=== PATIENT | male | born 1955 | race Caucasian/White ===

== ENCOUNTER 2020-08-01 17:15 | Inpatient (IN) | payer OTHER ==
[~2020-08-01] VITALS: Ht 182.9 cm; Wt 103.1 kg
--- NOTE | ~2020-08-01 | H ---
[facility] [place] [address] HISTORY AND PHYSICAL Name: ANABELLE SOTO Room #: 219-P ADM IN M.R.#: [id number] Admission: 08/01/20 Attend Phys: Eber Stevens MD Discharge: Date of : 53 Report #: [id number] THIS REPORT FOR: cc: FAM - No family physician/PCP FAM - No family physician/PCP Virgil Michelle MD ~ DATE OF SERVICE: 08/02/2020 INDICATION: Chest pain. HISTORY OF PRESENT ILLNESS: This is a very pleasant 64-year-old young male patient who has not followed up with physicians for 20-25 years. The patient states he has been having exertional substernal discomfort for quite some time, which resolved. He did not seek any medical attention for this. On Monday, though he developed diaphoresis, severe discomfort and it lasted quite some time. Upon further questioning, the discomfort lasted all night long and on the next day, he felt fine unless he was active and moving in which case the discomfort recurred. Then, we found out of the situation and brought him to the Emergency Room being admitted. Denies orthopnea, PND, syncope, near syncope, no palpitations. No orthopnea is noted by the patient. PAST MEDICAL HISTORY: Unknown since he has not seen a physician. He did have pneumonia in the 1980s. ALLERGIES: No known drug allergies. SOCIAL HISTORY: The patient does not follow any particular exercise regimen or dietary restriction. Does consume alcohol socially. REVIEW OF SYSTEMS: Except for symptoms previously mentioned and those commensurate with comorbid state, the 10-point review of system is negative. ELECTROCARDIOGRAM: Normal sinus rhythm, nonspecific ST-T wave changes. LABORATORIES: Are noted with BUN and creatinine of 14 and 1.0. Troponin 7.45 on admission. H and H is 16.1 and 47.0 and platelet count of 66,000. PHYSICAL EXAMINATION: GENERAL: Well-developed male, resting comfortably, in no acute distress. HEENT: Normocephalic, atraumatic. Pupils are equal, round, reactive to light and accommodation. Extraocular muscles are intact. Sclerae and conjunctivae are anicteric. NECK: JVD is normal. Carotid upstrokes are bilaterally symmetrical. No bruits are heard. No thyromegaly. No lymphadenopathy. LUNGS: Clear to auscultation. No wheezes, rhonchi or crackles. No CVA [facility] [address] [place] [address] HISTORY AND PHYSICAL Name: ANABELLE SOTO Room #: 219-P [facility] IN M.R.#: [id number] Admission: 08/01/20 Attend Phys: Eber Stevens MD Discharge: Date of : 53 Report #: [id number] tenderness. CARDIAC: Demonstrates a regular rhythm. Normal first and second heart sounds. No ventricular or atrial gallops, no rubs noted. No murmurs. No lifts or heaves, PMI normal. ABDOMEN: Soft, nontender, nondistended. Normal bowel sounds. EXTREMITIES: Without cyanosis, clubbing or edema. Distal pulses are intact. DTR symmetrical. NEUROLOGIC: Cranial nerves 2-12 are grossly normal and symmetrical. PSYCHIATRIC: Alert, oriented with normal affects. SKIN: Warm and dry. IMPRESSION: 1. Chest pain consistent with non-ST segment elevation myocardial infarction. The patient is currently stable. He is anticoagulated intravenously with unfractionated heparin and doing quite well. I have a concern with the low platelet count and I will discuss this below. The patient will undergo cardiac catheterization in the a.m. We will try and get Hematology to discuss the low platelet count before the procedure. Risks, complications, and alternatives of cardiac catheterization, PCI and conscious sedation discussed with the patient who voiced understanding and wished to proceed. 2. Hypothyroidism with TSH elevated as per primary care. 3. Dyslipidemia with total cholesterol 222, LDL is 168, HDL 27. We will initiate statin therapy. I did discuss lifestyle changes. By: 1044 [id number] Virgil Michelle MD /nt
[2020-08-01 17:16] VITALS: BP 123/87
[2020-08-01 17:42] LABS: ABSOLUTE NEUTROPHILS 4.2 thou/uL (1.4-8.2); MCV 80.6 fL (80.0-100.0); RBC 5.82 mil/uL (4.50-6.00); WBC 5.5 thou/uL (4.0-11.0)
[2020-08-01 17:44] LABS: BASOPHILS 0.3 % (0.0-2.0); EOSINOPHILS 1.9 % (0.0-3.0); HEMOGLOBIN 16.1 gm/dL (14.0-18.0); LYMPHOCYTES 11.7 % (24.0-44.0); MCH 27.6 pg (26.0-34.0); MCHC 34.2 g/dL (28.0-37.0); MONOCYTES 10.2 % (1.0-8.0); POLYS 75.9 % (36.0-66.0); RDW 16.8 % (10.5-14.5)
[2020-08-01 17:51] LABS: CALCIUM 9.6 mg/dL (8.5-10.1); POTASSIUM 3.7 mmol/L (3.5-5.1)
[2020-08-01 18:02] LABS: TROPONIN-I 7.45 ng/mL (<0.06)
[2020-08-01 18:18] LABS: LARGE PLATELETS OCCASIONAL; PLATELET COUNT 66 thou/uL (150-400)
[2020-08-01 18:21] VITALS: BP 123/87
[2020-08-01 18:38] VITALS: BP 199/68
[2020-08-01 19:00] VITALS: BP 139/69
[2020-08-01 19:50] LABS: CHOLESTEROL 222 mg/dL (<200); HDL CHOLESTEROL 27 mg/dL (>40); LDL CHOLESTEROL 168 mg/dL (<100); TC:HDL 8.2 Ratio (Not establshd); TRIGLYCERIDE 138 mg/dL (<150); VLDL 28 mg/dL (<40)
[2020-08-01 20:32] LABS: INR 1.1
--- NOTE | 2020-08-02 01:54 | NUR ---
ADMISSION ASSESSMENT COMPLETED. PT ALERT AND ORIENTED. DENIES ANY CHESTPAIN OR SOA. PT ALSO HAS NO DIZZINESS OR NAUSEA. BP CONTROLLED.REMAINS ON ROOM AIR. FOLLOWING TROPONIN TREND.COVID NEGATIVE.PT ON HEPARIN DRIP. HE HAS URINAL AVAILABLE AND HE IS VOIDING ADEQUATELY. SR ON TELEMETRY.AFEBRILE.CALLS APPROPRAITELY.
[2020-08-02 02:29] LABS: HEMOGLOBIN 14.3 gm/dL (14.0-18.0); MCH 26.5 pg (26.0-34.0); MCHC 33.2 g/dL (28.0-37.0); RBC 5.37 mil/uL (4.50-6.00); RDW 16.3 % (10.5-14.5); WBC 4.8 thou/uL (4.0-11.0)
[2020-08-02 02:54] LABS: CALCIUM 8.7 mg/dL (8.5-10.1); CREATININE 0.9 mg/dL (0.7-1.3); POTASSIUM 4.1 mmol/L (3.5-5.1)
[2020-08-02 02:57] LABS: TROPONIN-I 6.58 ng/mL (<0.06)
[2020-08-02 04:30] VITALS: BP 122/59
[2020-08-02 07:19] VITALS: BP 118/66
[2020-08-02 11:07] VITALS: BP 117/63
[2020-08-02 16:01] VITALS: BP 115/63
--- NOTE | 2020-08-02 18:23 | NUR ---
ASSESSMENT CHARTED - MEDS PER OCT. NO CO'S OF PAIN OR NAUSEA. GAVINO DIET AND FLUIDS. UP TO THE SHOWER THIS AFTERNOON - HEPARIN CONTINUE PER PROTOCOL. BOLUS AND RATE INCREASE THIS AM - AWAITING LAB TO CHECK TO SEE IF PATIENT THERAPEUTIC. PT TO GO TO [employer] [employer] [facility] IN THE AM - NO CO'S AT THE PRESENT TIME.
[2020-08-02 20:13] VITALS: BP 124/58
[2020-08-03] VITALS (12 sets, daily range): BP systolic 104–145; BP diastolic 54–74
--- NOTE | 2020-08-03 07:41 | NUR ---
PATIENT A/O X 4.DENIES PAIN UNTIL THIS AM.PT C/O CHEST PAIN NITROGLYCERIN SL WAS GIVEN.VERBALIZED RELIEF.EKG WAS DONE.ON HEPARIN GTT TITRATED PER PROTOCOL.NPO SINCE MIDNIGHT.MONITOR SHOWS SR.POC CONTINUED.
[2020-08-03 08:11] LABS: % SATURATION 25 % (20-39); IRON 71 ug/dL (65-175); TIBC 289 ug/dL (250-450)
[2020-08-03 08:12] LABS: ALBUMIN 3.9 g/dL (3.4-5.0); DIRECT BILIRUBIN 0.5 mg/dL (<0.1-0.2); TOTAL BILIRUBIN 2.3 mg/dL (0.2-1.0); TOTAL PROTEIN 6.5 g/dL (6.4-8.2)
[2020-08-03 09:24] LABS: FOLIC ACID 19.3 ng/mL (8.6-58.9)
--- NOTE | 2020-08-03 15:26 | 2DMMODE ---
[facility] [address] [place] [address] 2 D/M-MODE ECHOCARDIOGRAM Name: ANABELLE SOTO Room #: 219-P ADM IN M.R.#: [id number] Admission: 08/01/20 Attend Phys: Jesse Singh MD Discharge: Date of : 53 Report #: [id number] THIS REPORT FOR: cc: FAM - No family physician/PCP FAM - No family physician/PCP Virgil Michelle MD ~ APPROVED REPORT Study performed: 08/03/2020 14:12:16 EXAM: Comprehensive 2D, Doppler, and color-flow Echocardiogram Patient Location: Bedside Room #: 219 Status: routine BSA: 2.25 HR: 78 bpm BP: 117/65 mmHg Rhythm: NSR Other Information Study Quality: Good Indications Non STEMI CAD Chest Pain 2D Dimensions IVSd: 9.92 (7-11mm) LVOT Diam: 24.01 (18-24mm) LVDd: 60.70 mm PWd: 10.52 (7-11mm) Ascending Ao: 36.67 (22-36mm) LVDs: 46.97 (25-40mm) Aortic Root: 34.40 mm IVC: 12.00 mm Aortic Valve AoV Peak Bart.: 1.14 m/s AO Peak Gr.: 5.23 mmHg LVOT Max P.21 mmHg LVOT Max V: 1.03 m/s NANCI Vmax: 4.06 cm2 Mitral Valve E/A Ratio: 0.6 MV Decel. Time: 309.53 ms MV E Max Bart.: 0.58 m/s [facility] [address] [place] [address] 2 D/M-MODE ECHOCARDIOGRAM Name: ANABELLE SOTO Room #: 219-P [facility] IN M.R.#: [id number] Admission: 08/01/20 Attend Phys: Jesse Singh MD Discharge: Date of : 53 Report #: [id number] MV A Bart.: 1.05 m/s MV PHT: 89.76 ms IVRT: 156.86 ms Pulmonary Valve PV Peak Bart.: 1.05 m/s PV Peak Gr.: 4.38 mmHg Pulmonary Vein P Vein S: 0.28 m/s P Vein A: 0.38 m/s P Vein D: 0.25 m/s P Vein A Dur.: 124.6 msec P Vein S/D Ratio: 1.12 Left Ventricle Left ventricle is dilated. There is global hypokinesis of the left ventricle. There is normal left ventricular wall thickness. Left ventricular systolic function is mildly decreased. LVEF is 45%. Grade I - abnormal relaxation pattern. Right Ventricle The right ventricle is normal size. The right ventricular systolic function is normal. Atria The left atrium size is normal. The right atrium size is normal. Aortic Valve The aortic valve is normal in structure. No aortic regurgitation is present. There is no aortic valvular stenosis. Mitral Valve The mitral valve is normal in structure. There is no mitral valve regurgitation noted. No evidence of mitral valve stenosis. Tricuspid Valve The tricuspid valve is normal in structure. There is no tricuspid valve regurgitation noted. Pulmonic Valve The pulmonary valve is normal in structure. There is no pulmonic valvular regurgitation. Great Vessels The aortic root is normal in size. IVC is normal in size and collapses >50% with inspiration. [facility] [place] [address] [place] [address] 2 D/M-MODE ECHOCARDIOGRAM Name: ANABELLE SOTO Room #: 219-P ADM IN M.R.#: [id number] Admission: 08/01/20 Attend Phys: Jesse Singh MD Discharge: Date of : 53 Report #: [id number] Pericardium There is no pericardial effusion. <Conclusion> Left ventricle is dilated. There is global hypokinesis of the left ventricle. LVEF is 45%. The aortic valve is normal in structure. The mitral valve is normal in structure. The tricuspid valve is normal in structure. The pulmonary valve is normal in structure. There is no pericardial effusion. <ELECTRONICALLY SIGNED> By: Virgil Michelle MD 08/03/20 1526 1526 1526 Virgil Michelle MD /INF
[2020-08-03 16:01] LABS: HEMOGLOBIN 15.2 gm/dL (14.0-18.0); PLATELET COUNT 65 thou/uL (150-400); RDW 16.7 % (10.5-14.5); WBC 3.6 thou/uL (4.0-11.0)
[2020-08-03 16:03] LABS: HEMATOCRIT 45.4 % (42.0-52.0); MCH 27.1 pg (26.0-34.0); MCHC 33.5 g/dL (28.0-37.0); MCV 80.9 fL (80.0-100.0); RBC 5.61 mil/uL (4.50-6.00)
[2020-08-03 16:58] LABS: ALBUMIN 3.7 g/dL (3.4-5.0); CALCIUM 8.5 mg/dL (8.5-10.1); CREATININE 1.2 mg/dL (0.7-1.3); POTASSIUM 4.2 mmol/L (3.5-5.1); TOTAL BILIRUBIN 2.3 mg/dL (0.2-1.0); TOTAL PROTEIN 6.6 g/dL (6.4-8.2)
[2020-08-03 17:37] LABS: ABSOLUTE NEUTROPHILS 3.1 thou/uL (1.4-8.2); ANISOCYTOSIS 1+
[2020-08-03 17:38] LABS: TARGET CELLS FEW
[2020-08-03 18:02] LABS: URINE BILIRUBIN NEGATIVE (Negative); URINE BLOOD 3+ (Negative); URINE CLARITY SL CLOUDY; URINE COLOR YELLOW; URINE GLUCOSE-RANDOM* NEGATIVE (Negative); URINE KETONES NEGATIVE (Negative); URINE LEUKOCYTES-REFLEX TRACE (Negative); URINE PROTEIN (DIPSTICK) TRACE (Negative); URINE SPECIFIC GRAVITY 1.015 (1.005-1.035)
[2020-08-03 18:05] LABS: URINE NITRITE-REFLEX POSITIVE (Negative)
[2020-08-03 18:09] LABS: BACTERIA-REFLEX 1-9 Few /HPF (None Seen); CASTS None Seen /LPF (None Seen); CRYSTALS None Seen /LPF (None Seen); SQUAMOUS None Seen /LPF (0-3); URINE RBC >20 Many /HPF (0-2); URINE WBC-REFLEX 0-5 Rare /HPF (0-5)
--- NOTE | 2020-08-03 20:45 | NUR ---
RECEIVED PT'S CARE AROUND 0735; PT. ON BED; ALERT; C/O CP; 09/30; SR ON THE MONITOR; HEPARING GTT RUNNING AT 18.63 UNITS/KG/H; DURING AM ASSESSMENT PT. C/O CHEST PAIN INCREASING AND DECREASING FROM TIME TO TIME; PRN NITROGLYCERIN GIVEN; ST. DECREASE PAIN; AM MEDICATION GIVEN; RECEIVED CALL FROM CARDIAC CATH; DISCONNECT FROM FLUIDS AND HEPARIN GTT; PT. NOTIFIED ABOUT GOING FOR PROCEDURE; BACK FROM PROCEDURE AT 1200; R. GROIN SIDE C/D/I; NO HEMATOMA; EDUCATED ABOUT BED REST; HOLDING PRESSURE WHEN COUGHING; ST. UNDERSTANDING; LUNCH GIVEN; AROUND 1400 PT. BLEEDING FROM URETHRA AFTER VOIDING; BLOOD CLEANED OVER PERINEAL AREA AND HANDS; PHYSICIAN NOTIFIED; NO NEW ORDERS; MONITORING; BLOOD DRIPPING FROM URETHRA; URINE NOT CLEARING; PHYSICIAN NOTIFIED; ORDERS RECEIVED; ST. MIGHT NEED TO HAVE A BM; OFFERED BED NIEVES; REFUSED IT; LABS ON THE SYSTEM PHYSICIAN NOTIFIED; PAGED; NO ANSWER BACK; CLOSE TO 1500; PT. C/O NAUSEA; VOMITING; VS WNL; SHAKING; LIPS TURNING BLUE; RAPID RESPONSE CALLED; VS WNL; HBG WNL; EKG ST; PRN ZOFRAN GIVEN; AFTER RAPID RESPONSE DR. MALHOTRA ROUNDING ON PT.; DR. DE JESUS ROUNDING ON PT; AUTOMOBILE SERVICE STATION MECHANIC UPDATED THEM ABOUT PT'S HEALTH STATUS; ORDERS ON PLACED; URINE SAMPLE SENT; SUGGESTED US BLADDER TO DR. ALLEN; ORDERS RECEIVED; REASSESSMENT PT. ST. FEELING BETTER; ST. FEELING SOME WEAKNESS; REFUSED DINNER; VOID FREQUENT SMALL AMMOUNTS; DR. ALLEN NOTIFIED; ORDERS RECEIVED; PT. EDUCATED ABOUT CALLING IMMEDIATELY IF VOMITING AND SHAKINESS RETURNED; ST. UNDERSTANDING; NOTICED ELEVATED TOTAL BILIRUBIN AND AST; PHYSICIAN NOTIFIED; NO NEW ORDERS; ASSESSMENT CHARGED; FOLLOWING POC; PASSED ON REPORT;
[2020-08-04 05:04] LABS: MCH 27.4 pg (26.0-34.0); MCHC 34.3 g/dL (28.0-37.0); MCV 79.8 fL (80.0-100.0); RBC 4.76 mil/uL (4.50-6.00); RDW 16.7 % (10.5-14.5); WBC 8.9 thou/uL (4.0-11.0)
[2020-08-04 05:45] VITALS: BP 111/50
--- NOTE | 2020-08-04 06:00 | NUR ---
Assumed pt care at 1900. Pt is alert and oriented with no sign of distress noted in pt. Pt is drowsy. Assessment completed and documented. Fall precaution in place. Scheduled meds administered to pt. No acute events overnight. Pt is stable through the night. No further needs at this time.
--- NOTE | 2020-08-04 07:03 | HC ---
[facility] [address] [address] CONSULTATION Name: ANABELLE SOOT Room #: 219-P ADM IN M.R.#: [id number] Admission: 08/01/20 Attend Phys: Jesse Singh MD Discharge: Date of : 53 Report #: [id number] THIS REPORT FOR: cc: FAM - No family physician/PCP FAM - No family physician/PCP Jose G Martinez MD ~ DATE OF SERVICE: 08/03/2020 REASON FOR CONSULTATION: Thrombocytopenia. HISTORY OF PRESENT ILLNESS: The patient is a pleasant 64-year-old gentleman who probably has not seen a doctor over 2 decades, who on admission was for evaluation of chest pain and possible non-ST elevated NM, was found to have platelets of 66,000. On repeat yesterday, they were 64,000, none drawn today. Coags on admission include an INR of 1.1 and APTT of 30.1. White count 4.8, hemoglobin 14.3, MCV 80.0, RDW 16.3. Differential appears to be fairly unremarkable, without an increase in lymphocytes, maybe a slight increase in neutrophils, no acute forms. Liver function is not available. BUN of 14, creatinine of 0.9. TSH slightly elevated at 4.291. REVIEW OF SYSTEMS: The patient denies headache, fevers, chills, weight change, awareness of lymphadenopathy, any skin lesions, any blood in urine or stool, any unusual ecchymosis. MEDICATIONS: Prior to admission essentially none. Medications at this time include IV fluids, Pepcid 20 b.i.d., morphine p.r.n., Tylenol p.r.n., Zofran p.r.n., nitroglycerin p.r.n., heparin, atorvastatin 20 mg 1 time, metoprolol 12.5 mg 1 time. PHYSICAL EXAMINATION: VITAL SIGNS: The patient's height is 6 feet, which is 182.9 cm. Weight is 227.3 pounds or 103.1 kilograms. Blood pressure 109/54, O2 sat 97%, respirations 18, pulse 75, afebrile and oral temperature of 98.3. MOOD: The patient is pleasant, conversant. NEUROLOGIC: Speech and thought pattern normal. Moving all extremities well. LUNGS: Clear, without stridor, wheezes or rhonchi. Symmetric, unlabored. CARDIOVASCULAR: Regular rate. ABDOMEN: Slightly obese. No hepatosplenomegaly. Question of fluid on exam. EXTREMITIES: Without clubbing, cyanosis or edema. SKIN: Without unusual bruises except from lab draw. IMAGING: Includes a chest x-ray without comparison with no acute cardiopulmonary disease. FAMILY HISTORY: Father sounds like he may have chronic leukemia, unclear [address] [address] CONSULTATION Name: ANABELLE SOTO Room #: 219-P [facility] IN M.R.#: [id number] Admission: 08/01/20 Attend Phys: Jesse Singh MD Discharge: Date of : 53 Report #: [id number] whether it is myelogenous or lymphocytic. Mother also had heart disease. No one else with blood disorders. 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 ASSESSMENT AND PLAN: 1. Thrombocytopenia, unclear duration, unclear etiology. We will check B12, folate, iron, peripheral smear, immature platelet fraction. Also, ultrasound of the abdomen and liver function test. If ____this is from chronic ITP, then we should be able to treat him as needed for his heart disease. If he is felt to have underlying liver disease, then we have to be more cautious about medications and bleeding. We will await additional studies as ordered. 2. Non-ST elevation myocardial infarction. No plans and agree with plans for cardiac catheterization. 3. Hypothyroid. Agree with plans for replacement. We will follow with you. <ELECTRONICALLY SIGNED> By: Jose G Martinez MD 08/04/20 0703 0753 0826 Jose G Martinez MD /nt
[2020-08-04 10:10] VITALS: BP 109/51
--- NOTE | 2020-08-04 10:37 | NUR ---
Met with patient who admits with CP. Patient independent with adls. He is employed. He drives. He has no PCP. He has medicare A,B but NO prescrition coverage. Gave patient information for phys at [facility]. Patient resides alone in independent home. Debbie following for dc planning.
[2020-08-04 12:07] LABS: HEMATOLOGY COMMENTS Note: (()); HEMOGLOBIN 14.4 g/dL (13.0-17.7)
--- NOTE | 2020-08-04 14:11 | NUR ---
RECIEVED REPORT FROM ANABELL GÓMEZ.
[2020-08-04 16:45] VITALS: BP 114/54
--- NOTE | 2020-08-04 18:42 | NUR ---
PAGED DR ALLEN DEVERAL TIMES TO OBTAIN DIFFERENT MEDICATION TO TREAT NAUSEA HOWEVER NO RETURN CALL. WILL PASS ONTO NIGHT RN.
[2020-08-04 23:06] LABS: IgG 1075 mg/dL (603-1613)
--- NOTE | 2020-08-05 03:11 | NUR ---
At about 02:10, pt started complaining of chest pain. Vital sign was obtain, nitroglycerin x2 was administered. Pt verbalized chest pain relief after nitro administration. Soon later, patient started having shortness of breath, with respitaions of 25, oxygen level at 90% on 3L of O2. Oxygen level was increased from 3L-6L and when pt was assessed, it was noted that patient was sounded with crackles and wheezing. ARCH CUSHION SKIVING MACHINE OPERATOR practitioner notified and orders received. Continued to monitor patient through the night.
[2020-08-05 03:44] VITALS: BP 121/62
[2020-08-05 08:05] VITALS: BP 137/61
[2020-08-05 11:55] LABS: HEMATOCRIT 37.7 % (42.0-52.0); HEMOGLOBIN 12.9 gm/dL (14.0-18.0); MCH 27.1 pg (26.0-34.0); MCHC 34.1 g/dL (28.0-37.0); MCV 79.5 fL (80.0-100.0); RBC 4.75 mil/uL (4.50-6.00); RDW 16.5 % (10.5-14.5); WBC 6.4 thou/uL (4.0-11.0)
[2020-08-05 11:59] VITALS: BP 119/58
--- NOTE | 2020-08-05 12:07 | HC ---
[facility] [address] [address] CONSULTATION Name: ANABELLE SOTO Room #: 219-P ADM IN M.R.#: [id number] Admission: 08/01/20 Attend Phys: Jesse Singh MD Discharge: Date of : 53 Report #: [id number] THIS REPORT FOR: cc: FAM - No family physician/PCP FAM - No family physician/PCP Rishabh Tomlin MD ~ DATE OF SERVICE: 08/04/2020 INFECTIOUS DISEASE CONSULTATION ATTENDING PHYSICIAN: Dr. Singh. REASON FOR EVALUATION: Rigors, possible early sepsis. HISTORY OF PRESENT ILLNESS: Chart reviewed, patient examined. This is a 64-year-old gentleman, apparently without significant medical history, who is fairly active in his appointment, who experienced some chest pain and discomfort, described as a midsternal, did have some associated dyspnea, nausea as well as being diaphoretic. He was evaluated and felt to have a non-ST elevation myocardial infarction. Additional evaluation included thrombocytopenia, undergoing that evaluation as well. He had experienced episode with what sounds like acute rigors. This went on for quite some time, associated with nausea and emesis. He had a second episode today, perhaps attributable to contrast dye. Generally, he denies significant pulmonary-related complaints. On questioning, he denies any particular exposure history, he lives alone. He is empirically started on piperacillin/tazobactam. He has now had a result with 1 out of 2 blood cultures with growth of gram-positive cocci. He is not encephalopathic. ALLERGIES: None known. CURRENT MEDICATIONS: Include pantoprazole, lisinopril, isosorbide mononitrate, atorvastatin, aspirin, Zosyn, metoprolol, famotidine. PAST MEDICAL HISTORY: Otherwise unremarkable. SOCIAL HISTORY: Nonsmoker, no ethanol, no illicit drug use. FAMILY HISTORY: Noncontributory. REVIEW OF SYSTEMS: Otherwise unremarkable. PHYSICAL EXAMINATION: GENERAL: He appears reasonably well nourished, he is alert. VITAL SIGNS: Temperature is 99.9 this morning, pulse 97, respirations 18, blood [facility] [address] [place] [address] CONSULTATION Name: ANABELLE SOTO Room #: 219-P [facility] IN M.R.#: [id number] Admission: 08/01/20 Attend Phys: Jesse Singh MD Discharge: Date of : 53 Report #: [id number] pressure 109/51. SKIN: Warm, dry, no rashes. HEENT: Normocephalic. Extraocular muscles intact. NECK: Supple. LUNGS: Diminished, otherwise clear breath sounds. HEART: Regular. I do not appreciate a murmur. Borderline tachycardic. ABDOMEN: Soft, mildly distended, nontender. EXTREMITIES: No cyanosis. GENITOURINARY AND RECTAL: Deferred. LABORATORY DATA: Sed rate of 10. Blood cultures 1 out of 2 with Gram-positive cocci. Did have a surveillance isolated methicillin-susceptible Staph aureus. Most recent CBC: White count of 8.9, H and H 13.0 and 38.0, platelets of 56 which has been consistent. Abdominal ultrasound showed marked splenomegaly, no ascites. Urinalysis, 0-5 white cells. Lactic acid 1.5. Electrolytes: Sodium 143, potassium 4.2, chloride 106, bicarbonate is 26, anion gap of 11, BUN and creatinine 16 and 1.2, glucose of 109. AST of 47, total bilirubin of 2.3, ALT of 44. Albumin 3.7, total protein 6.6. Estimated GFR of 61. Echo was otherwise unremarkable. EF slightly decreased at 45%. There are no valvular abnormalities. Coronavirus testing was negative. ASSESSMENT: 1. Positive blood culture with a suggestion of staphylococcal species with what sounds like true rigors. 2. Non-ST elevation myocardial infarction. 3. Thrombocytopenia with marked splenomegaly. Oncology evaluating. PLAN: We will continue empiric therapy. Screening showed MSSA. I am not certain whether this blood culture represents a true positive at this point, I think it is reasonable to continue empiric therapy. At this point, I do not see focus of pyogenic infection, certainly may well be immunocompromised given splenomegaly. We will add incentive spirometry. Increase activity as allowed. Monitor expectantly. <ELECTRONICALLY SIGNED> By: Rishabh Tomlin MD 08/05/20 1207 1200 [id number] Rishabh Tomlin MD /nt
[2020-08-05 13:15] LABS: CALCIUM 8.5 mg/dL (8.5-10.1); POTASSIUM 3.4 mmol/L (3.5-5.1)
[2020-08-05 14:07] LABS: ANA INTERPRETATION Negative (Negative)
[2020-08-05 15:07] LABS: CERULOPLASMIN 24.7 mg/dL (16.0-31.0)
[2020-08-05 15:21] VITALS: BP 106/57
[2020-08-05 19:48] VITALS: BP 96/56
[2020-08-06 04:07] VITALS: BP 103/54
[2020-08-06 04:48] LABS: ALBUMIN 2.7 g/dL (3.4-5.0); CALCIUM 7.8 mg/dL (8.5-10.1); CREATININE 0.9 mg/dL (0.7-1.3); POTASSIUM 3.5 mmol/L (3.5-5.1); TOTAL BILIRUBIN 2.2 mg/dL (0.2-1.0); TOTAL PROTEIN 5.3 g/dL (6.4-8.2)
[2020-08-06 07:39] LABS: HEMATOCRIT 35.7 % (42.0-52.0); HEMOGLOBIN 11.9 gm/dL (14.0-18.0); MCH 26.7 pg (26.0-34.0); MCHC 33.3 g/dL (28.0-37.0); MCV 80.4 fL (80.0-100.0); RBC 4.44 mil/uL (4.50-6.00); RDW 16.7 % (10.5-14.5); WBC 5.2 thou/uL (4.0-11.0)
[2020-08-06 07:58] VITALS: BP 104/60
--- NOTE | 2020-08-06 09:46 | NUR ---
PT RESTING IN ROOM WITH OUT ANY C/O PAIN, VOIDING PER URINAL, VSS, SR PER MONITOR, PT STATED HE WAS FEELING BETTER THIS AM, REPORT GIVEN TO NEXT SHIFT TO CON'T WITH PPOC.
[2020-08-06 11:44] VITALS: BP 95/52
[2020-08-06 15:44] VITALS: BP 101/58
--- NOTE | 2020-08-06 16:25 | NUR ---
Case discussed with the care team. PT/OT/5N kenneth pending. Pt with + bld cultures and being treated for nstemi. Will likely need open heart surgery per CTS. Will ask rehab medicine for imput as pt is weak and may benefit from rehab stay prior to having heart surgery. Should the pt be able to dc home and return for CABG, HH could be ordered but cardiology or the attending would need to follow as he does not have a pcp.
[2020-08-06 17:07] LABS: HAV IgM AB (ANTI-HAV IgM) Negative (Negative); HEPATITIS C VIRUS AB <0.1 (0.0-0.9)
[2020-08-06 19:41] VITALS: BP 104/53
[2020-08-07] VITALS (8 sets, daily range): BP systolic 99–134; BP diastolic 49–87
[2020-08-07 04:07] LABS: HEMATOCRIT 33.5 % (42.0-52.0); HEMOGLOBIN 11.1 gm/dL (14.0-18.0); MCH 26.9 pg (26.0-34.0); MCHC 33.2 g/dL (28.0-37.0); MCV 80.9 fL (80.0-100.0); RBC 4.14 mil/uL (4.50-6.00); RDW 16.6 % (10.5-14.5); WBC 3.4 thou/uL (4.0-11.0)
[2020-08-07 04:33] LABS: ALBUMIN 2.6 g/dL (3.4-5.0); CALCIUM 8.1 mg/dL (8.5-10.1); TOTAL PROTEIN 5.6 g/dL (6.4-8.2)
--- NOTE | 2020-08-07 04:42 | NUR ---
Assumed pt care at 1900. Pt is alert and oriented. No sign of distress noted in pt. Pt is stable. Fall precaution in place. Assessment completed and documented. Scheduled meds administered to pt. No acute events overnight. Continue to monitor pt. No further needs at this time.
--- NOTE | 2020-08-07 11:23 | NUR ---
Case discussed with the care team. Pt did well with therapy this am. Print Washer visited with him at bedside. He is A&ox4 and indicates that he prefers to go home with home infusion and then return for his CABG in a few weeks. He only has Medicare A/B, no part D or supplement. He is also needing to find a pcp is going to call [facility]. Options for SNF or HH discussed. Outpt is not an option as it is [place] q4hrs and he is too high level for 5N. He feels safter returning home vs going to snf due to the virus. Dc landscape architect and planner to fax referrals to [facility] to get est cost for drug and supplies for home infusion.
[2020-08-07] MEDS ORDERED: ASPIRIN325 PO ×2 (14:17)
[2020-08-07] MEDS ORDERED: CLOPIDOGREL75 MG PO ×2 (14:17)
[2020-08-07] MEDS ORDERED: LISINOPRIL2.5 MG PO ×2 (14:17)
[2020-08-07] MEDS ORDERED: COREG6.25 MG PO ×2 (14:17)
[2020-08-07] MEDS ORDERED: LIPITOR40 MG PO ×2 (14:17)
[2020-08-07] MEDS ORDERED: IMDUR 30 MG TAB30 M1 PO ×2 (14:17)
--- NOTE | 2020-08-07 15:18 | NUR ---
VAT CONSULTED FOR PICC PLACEMENT. 4FR SL PICC LINE PLACED TO LEFT UPPER BASILIC VEIN, PER DOCUMENTAION AND HOSPITAL POLICY. TRIMMED 54CM WITH 0CM EXTERNAL. CXR ORDERED TO CONFIRM TIP LOCATION. PT TOLERATED WELL.
--- NOTE | 2020-08-07 16:33 | NUR ---
RECEIVED PT'S CARE AROUND 717; PT. ON BED; ALERT; DURING AM ASSESSMENT AOX4; NO C/O PAIN; C/O SOME NUMBNESS OVER RLE; PHYSICIAN AWARE; AM MEDICATION GIVEN; EDUCATED ABOUT FALL PRECAUTIONS; ST. UNDERSTANDING; PER DR. YA PT. NEEDS PICC LINE FOR IV ANTIBIOTICS; INKER NOTIFIED; PER DR. YA OK FOR PT. TO COME TO GET IV ANTIBIOTIC DAILY OUTPATIENT; ARRAGEMENTS MADE BY INKER; DR. ALLEN NOTIFIED; D/C ORDERS ON PLACED; PT. NOTIFIED; PT AND OT WORKER WITH PT; SR ON THE MONITOR; ASSESSMENT CHARGED; FOLLOWING POC; WAITING ON IV TEAM OK TO USE PICC LINE TO GIVE IV ANTIBIOTIC AND D/C PT.; WILL WORK ON D/C PAPERS;
--- NOTE | 2020-08-08 12:44 | HC ---
[facility] [place] [address] CONSULTATION Name: ANABELLE SOTO Room #: 219-P [facility] IN M.R.#: [id number] Admission: 08/01/20 Attend Phys: Jesse Singh MD Discharge: 08/07/20 Date of : 53 Report #: [id number] THIS REPORT FOR: cc: ARLENE - No family physician/PCP FAM - No family physician/PCP Misael Gonzales MD ~ DATE OF SERVICE: 08/03/2020 We were asked to see the patient by Dr. Michelle. HISTORY OF PRESENT ILLNESS: The patient is a 64-year-old with coronary artery disease. The patient was admitted on 08/01/2020 with chest pain. 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 Symptoms improved with rest pain. The patient went home early from work, but then overnight the patient was unable to sleep due to intermittent chest pain and the patient's family brought him to the Emergency Department. In the Emergency Department, he was found to have an elevated troponin of 7.4. Chest x-ray was negative for acute abnormalities. The patient was started on heparin drip and admitted to the hospital. Cardiac catheterization was done yesterday. This showed severe 3-vessel coronary artery disease and what looks like a chronically occluded left anterior descending, circumflex with a high-grade marginal stenosis and a high-grade complex right coronary lesion that appeared to be the culprit. Because the patient was having chest pain and diaphoresis on the table an acute intervention was done. A stent was placed in the distal right coronary artery and a lesion in the proximal right was simply ballooned. The patient was given a loading dose of Plavix and sent to the floor. On the floor, the patient developed episode of chills and rigor with the temperature of at least 99 degrees and I understand subsequently the blood cultures are positive for staph. Other medical problems: None. No specific problems reported. The patient has not seen doctors in years. MEDICATIONS AT HOME: No home medication. ALLERGIES: No drug allergies. SOCIAL HISTORY: The patient is a never smoker, who does use alcohol. [facility] [address] [place] [address] CONSULTATION Name: ANABELLE SOTO Room #: 219-P [facility] IN M.R.#: [id number] Admission: 08/01/20 Attend Phys: Jesse Singh MD Discharge: 08/07/20 Date of : 53 Report #: [id number] REVIEW OF SYSTEMS: Not done as the patient was in the throes of his chills and rigors. We note since hospitalization, the patient has been diagnosed as having thrombocytopenia with an unknown cause. PHYSICAL EXAMINATION: VITAL SIGNS: When I saw the patient, temperature was 99 degrees, blood pressure 130/57, heart rate was 104 when I saw the patient, on 3 liters oxygen the pulse ox was 95. HEENT: No scleral icterus, no arcus. NECK: No mass. I hear no bruit. CHEST: Clear to auscultation, but breath sounds are diminished due to poor effort. HEART: The patient has tachycardia. No murmurs audible. Heart tones are somewhat distant. ABDOMEN: Soft. EXTREMITIES: Warm. No clubbing, cyanosis or edema, 2+ popliteal pulses bilaterally. As mentioned, the patient is having chills and rigor. NEUROLOGIC: No obvious motor or sensory dysfunction. MUSCULOSKELETAL: No obvious muscle or bone asymmetry or deformity. SKIN: No rash or infection. PSYCHIATRIC: The patient is not communicative, although he does answer questions grudgingly and appears to be oriented. ASSESSMENT: The patient has important coronary artery disease, but also other medical problems including thrombocytopenia and what appears to be possible bacteremia. The patient also has gross hematuria after the loading dose of Plavix was started. I reviewed the case with Dr. Michelle. Fortunately, the culprit lesion appears to be addressed. However, the patient does have chronic coronary lesions that will require surgery. Other medical issues need to be addressed and ameliorated first and then I will discuss risks and details, options and alternatives with the patient for treatment of this important coronary artery disease. Thank you for the consult. <ELECTRONICALLY SIGNED> By: Misael Gonzales MD 08/08/20 1244 1514 Misael Gonzales MD /nt
--- NOTE | 2020-08-10 07:54 | EKG ---
[address] [place] [employer] [place] [address] ELECTROCARDIOGRAM REPORT Name: ANABELLE SOTO Room #: 219-[facility] IN M.R.#: [id number] Admission: 08/01/20 Attend Phys: Jesse Singh MD Discharge: 08/07/20 Date of : 53 Report #: [id number] [facility] Test Date: 2020-08-03 Test Time: 03:39:35 Pat Name: ANABELLE SOTO Department: Room: 219 P Gender: M Maintenance Man: JESSICA : 1955 Requested By: Virgil Michelle Order Number: [id number] MD: All Waller Measurements Intervals [place] Rate: 79 P: 22 ID: 183 QRS: -53 QRSD: 107 T: 6 QT: 370 QTc: 425 Interpretive Statements Sinus rhythm Left anterior hemiblock Anterior infarct, age indeterminate Compared to ECG 08/01/2020 17:21:15 No significant changes Electronically Signed On 08-03-2020 7:23:55 [place] MACHINE OPERATOR by All Waller [email or web address] <ELECTRONICALLY SIGNED> By: All Waller MD, [facility] 08/03/20 0723 0339 [id number] All Waller MD, [facility] /EPI
--- NOTE | 2020-08-10 07:54 | EKG ---
[address] [address] ELECTROCARDIOGRAM REPORT Name: ANABELLE SOTO Room #: 219-P [facility] IN M.R.#: [id number] Admission: 08/01/20 Attend Phys: Jesse Singh MD Discharge: 08/07/20 Date of : 53 Report #: [id number] [facility] Test Date: 2020-08-03 Test Time: 09:02:18 Pat Name: ANABELLE SOTO Department: Room: 219 P Gender: M Community Affairs Manager: CHEL : 1955 Requested By: Marla Villafana Order Number: [id number] MD: Duran Ashton Measurements Intervals [place] Rate: 78 P: 19 [place]: 181 QRS: -49 QRSD: 107 T: 16 QT: 375 QTc: 428 Interpretive Statements Sinus rhythm Inferior infarct, old Anteroseptal infarct, age indeterminate Compared to ECG 08/03/2020 03:39:35 Left anterior fascicular block no longer present Myocardial infarct finding still present Electronically Signed On 08-03-2020 13:02:38 PENS AND PENCILS REPAIRER by Duran Ashton [email or web address] <ELECTRONICALLY SIGNED> By: Duran Ashton MD, FACC 08/03/20 1302 0902 0902 Duran Ashton MD, [facility] /EPI
--- NOTE | 2020-08-10 07:54 | EKG ---
[address] [address] ELECTROCARDIOGRAM REPORT Name: ANABELLE SOTO Room #: 219-P [facility] IN M.R.#: [id number] Admission: 08/01/20 Attend Phys: Jesse Singh MD Discharge: 08/07/20 Date of : 53 Report #: [id number] [facility] ED Test Date: 2020-08-01 Test Time: 17:21:15 Pat Name: ANABELLE SOTO Department: Room: 219 Gender: M Network Controller: cirilo : 1955 Requested By: Sheldon Rondon Order Number: [id number] MD: Duran Ashton Measurements Intervals [place] Rate: 90 P: 10 DC: 171 QRS: -69 QRSD: 100 T: 33 QT: 354 QTc: 433 Interpretive Statements Sinus rhythm Probable left atrial enlargement Anteroseptal infarct, age indeterminate No previous ECG available for comparison Electronically Signed On 08-03-2020 7:21:05 INSIDE SALES ACCOUNT MANAGER by Duran Ashton [email or web address] <ELECTRONICALLY SIGNED> By: Duran Ashton MD, [facility] 08/03/20 0721 172 20 Duran Ashton MD, FAC /EPI
--- NOTE | 2020-08-10 07:55 | EKG ---
[address] [address] ELECTROCARDIOGRAM REPORT Name: ANABELLE SOTO Room #: 219-P [facility] IN M.R.#: [id number] Admission: 08/01/20 Attend Phys: Jesse Singh MD Discharge: 08/07/20 Date of : 53 Report #: [id number] [facility] Test Date: 2020-08-03 Test Time: 16:36:49 Pat Name: ANABELLE SOTO Department: Room: 219 P Gender: M Coater: Shivani VELASQUEZ : 1955 Requested By: Jesse Singh Order Number: [id number] MD: Duran Ashton Measurements Intervals [place] Rate: 106 P: [place]: QRS: -51 QRSD: 103 T: 60 QT: 330 QTc: 439 Interpretive Statements SINUS TACHYCARDIA Inferior infarct, old Probable anteroseptal infarct, old Artifact in lead(s) I,II,aVR,V1,V2,V3,V4,V5,V6 Compared to ECG 08/03/2020 09:02:18 Sinus rhythm no longer present Myocardial infarct finding still present Electronically Signed On 08-04-2020 7:22:09 CRITICAL CARE UNIT NURSE by Duran Ashton [email or web address] <ELECTRONICALLY SIGNED> By: Duran Ashton MD, FACC 08/04/20 0722 1636 1636 Duran Ashton MD, FACC /EPI
--- NOTE | 2020-08-12 10:42 | HC ---
[facility] [place] [address] CONSULTATION Name: ANABELLE SOTO Room #: 219-P [facility] IN M.R.#: [id number] Admission: 08/01/20 Attend Phys: Jesse Singh MD Discharge: 08/07/20 Date of : 53 Report #: [id number] THIS REPORT FOR: cc: ARLENE - No family physician/PCP FAM - No family physician/PCP Rogelio Root MD ~ DATE OF SERVICE: 08/06/2020 HISTORY OF PRESENT ILLNESS: The patient is a 64-year-old white male who was admitted with chest pain, noted to have elevated troponin, decreased platelets. Marked splenomegaly. Hematology has been involved. He also has a non-ST elevation DC. Cardiology is involved and he underwent stenting. Cardiac catheterization showed 3-vessel coronary artery disease. There is consideration for cardiac bypass at a later date as he further medically stabilizes. His course has been complicated by Staphylococcus bacteremia with possible early sepsis, positive blood cultures. He also has had acute hypoxic respiratory failure. GI is following with elevated liver function tests and there is a question for possible EGD or colonoscopy at a later date. Hematology is involved with the thrombocytopenia and splenomegaly and he underwent a bone marrow biopsy yesterday with results pending. He has had some problems with confusion, disorientation/multifactorial encephalopathy that appear to be improving. We are seeing him in rehabilitation medicine consultation. PAST MEDICAL HISTORY: Relatively benign. He has had a history of pneumonia in the past. There is also a note of GERD. MEDICATIONS: Please see the full medication listing. ALLERGIES: No known drug allergies. SOCIAL HISTORY: Lives in a house alone. No assistive device, community ambulator, works as a shampoo person, active buffing floors, etc. He does have an Ex- in the area and 2 sons in the area and a daughter in [place]. REVIEW OF SYSTEMS: No current complaints of chest pain, shortness of breath or abdominal discomfort. He was not on any oxygen premorbidly. PHYSICAL EXAMINATION: GENERAL: A 64-year-old pleasant white male, in no obvious distress. VITAL SIGNS: Last recorded temperature 98.6, pulse 73, respirations 17, blood pressure 95/52. The patient is alert, pleasant. HEENT: Appeared to be benign. He is currently on nasal prong O2, 3 liters. NEUROLOGIC: Facies are symmetric. He has functional range of motion of the upper extremities. Strength is grade 4-/5. DTRs are trace to 1. Lower extremities, no focal calf swelling, functional range of motion with strength [address] [address] CONSULTATION Name: ANABELLE SOTO Room #: 219-P [facility] IN ..#: [id number] Admission: 08/01/20 Attend Phys: Jesse Singh MD Discharge: 08/07/20 Date of : 53 Report #: [id number] grade 4-/5. DTRs are trace to 1. He follows basic commands without difficulty, although there may be some latency to his responses. ASSESSMENT: A 64-year-old white male with the following problem list: 1. Medical complexity with generalized debilitation. 2. Coronary artery disease, status post catheterization with stenting of the LAD. 3. Acute hypoxic respiratory failure. 4. A three-vessel severe coronary artery disease with consideration for Cardiothoracic bypass surgery at a later date. 5. Thrombocytopenia with massive splenomegaly, status post bone marrow biopsy. Hematology/Oncology involved. 6. Elevated liver function tests. GI is assisting. Recommendations are for EGD/colonoscopy at some point. 7. Staphylococcus bacteremia. 8. Non-ST elevation myocardial infarction. PLAN: Discussion with the patient's nurse. We will go ahead and add physical therapy and occupational therapy orders. We will see how he does with his overall functional abilities. We will be glad to follow along with you regarding his rehab therapy needs. <ELECTRONICALLY SIGNED> By: Rogelio Root MD 08/12/20 1042 1200 1530 Rogelio Root MD /[facility]
[2020-08-18] MEDS ORDERED: NITROSTAT0.4 M1 SUBLING (10:09)
[2020-08-20] MEDS ORDERED: ROSUVASTATIN CA20 MG (10:33)
[2020-08-20] MEDS ORDERED: MUPIROCIN1 GM (10:36)
--- NOTE | 2020-08-24 14:34 | CATHLAB ---
[facility] [address] [address] INVASIVE PROCEDURE REPORT Name: ANABELLE SOTO Room #: 219-P DIS IN M.R.#: [id number] Admission: 08/01/20 Attend Phys: Jesse Singh MD Discharge: 08/07/20 Date of : 53 Report #: [id number] THIS REPORT FOR: cc: FAM - No family physician/PCP FAM - No family physician/PCP Virgil Michelle MD ~ APPROVED REPORT Study performed: 08/03/2020 09:32:40 Patient Details Patient Status: In-Patient Room #: The patient is a 64 year-old male Event Personnel Virgil Michelle Transportation Museum Helper, Cristal Merchant Monitor, Zackary Bernard RTR Monitor, Tammy Jimenez RTR Claude Timmons Jessica RN scientific process operator Performed Left Heart Cath w/or w/o Coronaries 1929013 [facility] [address] w/wo Plasty Single RCA 581058 Art Access - R femoral artery* Hemostasis w/ Mynx 85794 Initial Mod Sed Same Phys/QHP Gr5y [id number] 44492 Mod Sed Same Phys/QHP Ea 812393, supervision of conscious sedation Indication Non-STEMI (>12 hrs to = 24 hrs), Chest pain Procedure Narrative The patient was brought urgently to the Cardiac Catheterization Laboratory and was prepped and draped in a sterile manner. The Right Groin^ was infiltrated with 1% Lidocaine subcutaneous anesthesia. A PINNACLE 6FR Sheath #[id number] sheath was inserted into the RFA^. Coronary angiography was performed using coronary diagnostic catheters. The right coronary system was accessed and visualized with a JR4 catheter. The left coronary system was accessed and visualized with a JL4 catheter. The left ventricle was accessed and visualized with a PIGTAIL catheter. Left ventricular/Aortic Valve gradient assessed via catheter pullback. Left ventriculogram was performed in 30 degree projection. Closure device was deployed with a Fr MYNXGRIP 6/7F #[id number]. The patient tolerated the procedure well and there were no complications associated with the procedure. There was no hematoma. [address] [address] INVASIVE PROCEDURE REPORT Name: ANABELLE SOTO Room #: 219-P [facility] IN ..#: [id number] Admission: 08/01/20 Attend Phys: Jesse Singh MD Discharge: 08/07/20 Date of : 53 Report #: [id number] Intraoperative Conscious Sedation Sedation start time: 10:29 Case end Time: 11:36 Versed 2 mg Fluoro Time: 12.04 minutes Dose: DAP 21680.20 cGycm2 1779 mGy Contrast Type and Amount: Omnipaque 205 ml Coronary Angiography The patient's coronary anatomy is right dominant. Diagnostic Cath Left Main Moderate caliber vessel of normal origin bifurcates left into descending left circumflex. Mild distal tapering is noted but no high-grade obstructive lesions LAD Small caliber type III vessel which has proximal lesions of less than 40%. First diagonal branch stent originates in course on the anterolateral wall. The LAD is subtotally occluded without evidence of homocollaterals. The LAD then continues a small caliber vessel along the interventricular sulcus to the apex and terminating is a small caliber vessel. The mid and distal LAD fills via collaterals slowly. Diagonal 1 Moderate caliber vessel with a proximal 40 to 50% lesion. Because on the anterolateral wall free of high-grade disease Diagonal 2 Small caliber vessel which arises after the subtotal to total occlusion of the LAD proper. It courses with the proximal two thirds being free of high-grade disease in the distal portion has high-grade diffuse disease present Circumflex Small nondominant caliber vessel which courses in the AV groove gives rise to marginal branch continues on the second marginal branch and terminates a small caliber vessel in the posterolateral left ventricle. There is moderate irregularities noted proximally. OM1 Moderate caliber vessel coursing on the lateral aspect of the left ventricle. At its origin is an eccentric 60% lesion noted. It then continues bifurcates with mild irregularities of coursing on the lateral aspect of the left ventricle OM2 Small caliber as well as significant high-grade lesions with originates after the origin of the first marginal branch Right Coronary Large-caliber vessel normal origin has a proximal region of narrowing of greater than 80%. The vessel reconstitutes himself with a sequential 60% lesion identified. The vessel then continues to the acute margin where there is a 60 to 70% region and in a tighter 95% focal lesion. The vessel continues reconstitutes [facility] [address] [place] [address] INVASIVE PROCEDURE REPORT Name: ANABELLE SOTO Room #: 219-P DIS IN Garret#: [id number] Admission: 08/01/20 Attend Phys: Jesse Singh MD Discharge: 08/07/20 Date of : 53 Report #: [id number] itself or an early posterior descending artery arises. This vessel courses posteriorly giving rise to the extent of posterior wall circulation with only mild irregularities. The RCA continues in the posterior interventricular sulcus where there is a high-grade lesion at the crux of the heart. It then continues on giving rise to a posterolateral branch which is small in caliber go quite long in length extending towards the lateral apical wall. R PDA Moderate caliber vessel with irregularities noted no high-grade obstructive lesion as it courses and supplies the posterior aspect of the ventricle Left Ventriculography Left Ventriculography was not performed. Hemodynamics The aortic pressure is 127/60 mmHg with a mean of 44 mmHg. The left ventricular pressure is 120/22 mmHg with a mean of mmHg. The left ventricular end diastolic pressure is 38 mmHg. Pullback from the left ventricle to the aorta revealed no gradient across the aortic valve. PCI Technique The patient developed chest discomfort and transient hypotension at this time. The planned elective aorta, bypass grafting was discontinued and the system was exchanged for a 6 Guatemalan system for acute intervention. A standard Max right 4 curve guide was engaged with right coronary ostium and a wire was advanced distally. Utilizing a predilatation balloon the RCA proper was dilated and subsequently stented successfully. The balloon sizes and stent size are noted in the log. Subsequent to deployment of the stent prior to the origin of the posterior descending artery the proximal lesion was noted to be significant. A noncompliant balloon was then brought forth and dilated slowly and carefully in view of the heavy calcification identified. Repeated inflations were carried forth as noted in the log with residual being less than 20%. Improvement in this proximal high-grade lesion made the 6% lesion more obvious but it was not stented secondary to the need to revascularize the left coronary system surgically. The procedure tolerated rate well by the patient without any loss of side branches embolization intraluminal thrombus noted PCI Technique Lesion Percutaneous coronary intervention was performed on the mid right coronary artery. A LAUNCHER 6FR JR 4 #[id number] Guide Catheter was used to engage the RCA ostium. A Luge Wire (J) .014 X 182CM #[id number] Interventional Guidewire was used to cross the lesion. [facility] [place] [address] INVASIVE PROCEDURE REPORT Name: ANABELLE SOTO Room #: 219-P [facility] IN ..#: [id number] Admission: 08/01/20 Attend Phys: Jesse Singh MD Discharge: 08/07/20 Date of : 53 Report #: [id number] BALLOON DILATION A Balloon catheter Sprinter OTW 3.0 x 20 #[id number] was inserted and inflated up to 8.00atm for 19seconds. STENT DEPLOYMENT A stent RESOLUTE DOMINGA OTW 4.0 X 22 #[id number] was inserted and inflated up to 12.00atm for 8seconds. Additional Inflation: 12.00atm for 6seconds. PCI Technique Lesion 2 Percutaneous Coronary Intervention was performed on the proximal right coronary artery. A LAUNCHER 6FR JR 4 #[id number] Guide Catheter was used to engage the ostium. A Luge Wire (J) .014 X 182CM #[id number] Interventional Guidewire was used to cross the lesion. Balloon Dilation A Balloon catheter TREK NC OTW 4.0 X 12 #[id number] was inserted and inflated up to 18.00atm for 10seconds. Additional Inflation: 20.00atm for 1seconds. A Balloon catheter Euphora NC RX 5.0 x 8 #[id number] was inserted and inflated up to 16.00 jackie for 17 seconds. An additional inflation of 15.00 jackie for 12 seconds was done also. Conclusion 1. Coronary disease severe three-vessel consisting of a subtotally 2 total occlusion of proximal mid LAD and a high-grade proximal and distal RCA 2. Abnormal hemodynamics elevated left ventricle end-diastolic pressures 3. Successful percutaneous revascularization of the high-grade culprit proximal RCA lesion with RICK stenting as noted in the log 4. Successful PCI of the proximal RCA lesion with residual less than 20% Recommendations Daily ASA with Plavix for at least one year Cardiac Risk Reduction Program CABG Have discussed case with cardiothoracic surgery and will schedule for office visit in 4 weeks for subsequent revascularization of the LAD, D2, posterolateral branch as deemed by CTS <ELECTRONICALLY SIGNED> By: Virgil Michelle MD 08/24/20 1434 1434 1434 Virgil Michelle MD /INF
--- NOTE | 2020-08-25 09:07 | PATH ---
[facility] [address] [address] PATHOLOGY RPT PROCEDURE Name: OMAR UNDERWOOD Room #: 219-P DIS IN M.R.#: [id number] Admission: 08/01/20 Date of : 53 Discharge: 08/07/20 Report #: [id number] Path Case #: [id number] [facility] Accession Number: [id number] . 01 Material submitted: . PART A: bone - BONE MARROW BIOPSY PART B: bone - BONE MARROW CLOT PART C: bone - BONE MARROW ASPIRATE SLIDES PART D: bone - PERIPHERAL BLOOD SMEARS PART E: bone - BONE MARROW FLOW . 01 Clinical history: . 64-YEAR-OLD MAN WITH ANEMIA, THROMBOCYTOPENIA AND SPLENOMEGALY. NSTEMIL; LOW PETS AND SPLEEN 24CM; CHEST PAIN . 02 Diagnosis: Bone marrow aspirate, biopsy, cell clot and peripheral blood: - Peripheral blood with mild microcytic anemia and severe thrombocytopenia. - Normocellular to mildly hypercellular bone marrow with trilineage hematopoiesis, erythroid hyperplasia, mild dyspoiesis and no evidence of lymphoma or acute leukemia. - No stainable iron. - See comment. (GINIW:imelda; 08/12/2020) . . Special studies report received from [facility], [address], [address], [place], [address], on case [id number], labeled with their number [id number], dated 08/08/2020. . Flow Cytometry: Hematologic Neoplasia Assessment . Clinical History Thrombocytopenia, spleen 24 cm . Indication for Study Evaluation for hematolymphoid neoplasia . Specimen Bone Marrow Aspirate . Viability 92% (7AAD exclusion) . Interpretation Bone Marrow Aspirate: No significant immunophenotypic abnormalities detected [address] [address] PATHOLOGY RPT PROCEDURE Name: OMAR UNDERWOOD Room #: 219-P [facility] IN M.R.#: [id number] Admission: 08/01/20 Date of : 53 Discharge: 08/07/20 Report #: [id number] Path Case #: [id number] . Comments An etiology for this patient's thrombocytopenia and splenomegaly is not apparent in this analysis. No immunophenotypic evidence of acute leukemia, B-cell non-Hodgkin lymphoma, T-cell lymphoproliferative disorder, plasma cell dyscrasia or specific immunophenotypic changes associated with MDS or MPN is detected in this analysis. Notably, hematologic conditions such as MDS and MPN are difficult to definitively diagnose or exclude solely by flow cytometric analysis. The requested cytogenetic studies have been ordered and will be reported separately upon completion. A thorough clinical and pathologic correlation is recommended prior to the final disposition of this case. . Populations Analyzed Myeloid Blasts: 0.3% No significant immunophenotypic abnormalities Lymphocytes: 4% B-cells: 0.4%, polytypic/polyclonal sIg light chain pattern (K/L= 2.3:1) T-cells: no significant abnormalities of the markers tested CD4+ T-cells: 1.4% (including 0.0% CD57+ cells) CD8+ T-cells: 1.4% (including 0.3% CD57+ cells) CD4:CD8: 1.1 NK cells: 0.5% Neutrophilic Cells: 88% Analysis for this population shows a myeloid phenotype with immunophenotypic evidence of community relations manager, right shifted maturation. Monocytic Cells: 6% Monocytes are not increased and have normal expression of monocyte related antigens. Eosinophils: 1% No relative increase Basophils: 0.1% No relative increase Plasma Cells: 0.02% Few detected; no overt abnormalities of the surface markers tested (plasma cells are typically underrepresented by flow cytometry; cytoplasmic light chains were not assessed) Hematogones: 0.2% Normal B-cell precursors CD45 Negative 0.3% No significant reactivity with the markers Events/Debris: tested (may represent unlysed red blood cells, erythroid precursors, platelets, debris, etc.) (erythroid precursors may be underrepresented due to sample lysis/processing) . Morphologic Evaluation A slide was reviewed for director quality assurance purposes only. . Specimen Description Total Cell Yield: 3.96 X 10 and [address] [address] PATHOLOGY RPT PROCEDURE Name: OMAR UNDERWOOD Room #: 219-P DIS IN M.R.#: [id number] Admission: 08/01/20 Date of : 53 Discharge: 08/07/20 Report #: [id number] Path Case #: [id number] Reagent(s) Used CD2, CD3, CD4, CD5, CD7, CD8, CD10, CD11b, CD11c, CD13, CD14, CD15, CD16, CD19, CD20, CD33, CD34, CD38, CD45, CD56, CD57, CD64, CD103, CD117, HLA-DR, kappa, lambda . at [facility] [employer]. Favian Whyte MD Pathologist . . Intended Use Flow cytometry is optimally used to immunophenotypically characterize abnormal populations when they are detected. Negative flow cytometry results do not exclude lymphoma or neoplasia. Possible false negative flow cytometry results may occur in, but are not limited to, the following: neoplastic cells in Hodgkin lymphoma are not typically adequately represented by routine clinical flow cytometry; neoplastic cells may be lost or inadequately represented due to degeneration, sample processing, sampling artifact, or patchy involvement; plasma cells are typically underrepresented by flow cytometry; immature cells/blasts may be underrepresented due to hemodilution; myeloproliferative disorders and low grade myelodysplasia may not have immunophenotypic abnormalities or increased blasts. Correlation with all available clinical, laboratory, and morphologic data is always necessary to assess for the possibility of false negative flow cytometry results and to establish a diagnosis. Each marker in this analysis was used to assess for potential antigenic abnormalities or to evaluate detected abnormalities. . Any image or images that accompany this report are marketing representative images only and should not be used to render a diagnosis. . Disclaimer(s) This test was developed and its performance characteristics determined by [employer] [employer]. It has not been cleared or approved by the Food and Drug Administration. . Performing Labs [facility] is a business unit of [employer] a wholly-owned subsidiary of [employer]. . This test was performed at [facility] at [address], [address] - [place] Supervisor: Carlos A Robles MD. . For inquiries, the physician may contact Lab: [phone] . [address] [address] PATHOLOGY RPT PROCEDURE Name: OMAR UNDERWOOD Room #: 219-P [facility] IN M.R.#: [id number] Admission: 08/01/20 Date of : 53 Discharge: 08/07/20 Report #: [id number] Path Case #: [id number] A complete copy of the report is on file. . Professional services performed by [facility]. at [address], [place] [address]. Technical services performed by [facility] [employer]. at [address], [place] [address]. . (CLW:elizabeth 08/10/2020) . [facility] 08/16/2020 1409 Local . 02 Comment: Overall the bone marrow is normocellular to mildly hypercellular for the patient's age with trilineage hematopoiesis, erythroid hyperplasia, mild dyspoiesis and no evidence of lymphoma or acute leukemia. The dyspoiesis is mild and while it could represent a low-grade to myelodysplastic syndrome, it does not meet the morphologic criteria for myleoid dysplasia. Of note, no stainable iron is identified. Correlation with clinical history, additional laboratory data, and cytogenetics is recommended. (CLW:imelda; 08/12/2020) . 02 Addendum: . Special studies report received from [facility], [address] [place] [address], [address], [place], [address], on case [id number], labeled with their number [id number], dated 08/17/2020. . Cytogenetic Analysis Report . RESULT: Normal Male Karyotype 46,XY[20] . Specimen Type: Bone Marrow . Indication for Study: Low Platelets . INTERPRETATION: Cytogenetic analysis revealed no evidence of an acquired clonal abnormality. These findings should be interpreted in the context of clinical and pathologic findings. . See Flow Cytometry report [id number] for further information. . . Number of Metaphases Counted: 20 Banding: G-banding Number of Metaphase Cells Analyzed: 20 Band Level: 400 Number of Metaphase Cells Karyotyped: 2 Cultures Established: 24/48 [place] [address] PATHOLOGY RPT PROCEDURE Name: OMAR UNDERWOOD Room #: 219-P [facility] IN M.R.#: [id number] Admission: 08/01/20 Date of : 53 Discharge: 08/07/20 Report #: [id number] Path Case #: [id number] . at [facility] [employer]. Marcio Pate, Ph.D., DABMGG Director . Disclaimer(s): Any image(s) that accompany this report is/are a marketing representative image(s) only and should not be used to render a diagnosis. . Based on the resolution of this study, standard cytogenetic methodology does not routinely detect subtle or sub-microscopic rearrangements or low level mosaicism. . Performing Labs: [facility] is a business unit of [employer] a wholly-owned subsidiary of [employer]. . . A complete copy of the report is on file. . Professional services performed by [facility]. at [address], [place] [address]. Technical services performed by [facility] at [address], [place] [address]. . . (CLW:imelda; 08/18/2020) . . QMS/08/18/2020 Addendum Electronically Signed by Shanna Shin MD, Pathologist . 02 Electronically signed: . Shanna Shin MD, Pathologist NPI- [id number] . 01 Gross description: . A. The specimen is received in formalin, labeled "Omar Underwood, BM biopsy" and consists of a bone core measuring 1.5 cm in length and 0.2 cm in diameter which is entirely submitted in A1 following decalcification. . B. The specimen is received in formalin, labeled "Omar Underwood, BM aspirate clot" and consists of blood clot measuring 2.1 x 1.8 x 0.5 cm which is entirely submitted in B1. (SDY; 08/05/2020) SYU/SYU 08/05/[address] [address] PATHOLOGY RPT PROCEDURE Name: OMAR UNDERWOOD Room #: 219-P DIS IN M.R.#: [id number] Admission: 08/01/20 Date of : [birth year] Discharge: 08/07/20 Report #: [id number] Path Case #: [id number] . 02 Microscopic: . CBC Data (08/15/20): WBC 6,400 /uL, RBC 4.75, hemoglobin 12.9 g/dL, hematocrit 37.7%, MCV 79.5 fL, MCH 27.1 pg, MCHC 34.1 g/dL, RDW 16.5%, and platelet count 50,000 /uL. White blood cell differential (08/01/20): segs 75.9%, lymphs 11.7%, monos 10.2%, eos 1.9%, and basos 0.3%. . Peripheral Blood Smear: Cytomorphological examination of the Vu's stained peripheral blood smear confirms the provided data. Red blood cells show mild microcytic anemia with mild anisopoikilocytosis. White blood cells are predominantly segmented neutrophils and are without significant dyspoiesis or significant left shift. Lymphocytes are predominantly small, round, and mature appearing with condensed chromatin and scant cytoplasm with admixed large granular lymphocytes. On scanning, no markedly atypical lymphoid cells are seen. Monocytes are mature. Platelets are decreased in number and mainly normal in morphology with rare larger platelets noted. . Aspirate Smears: Cytomorphological examination of the Vu's stained aspirate smears shows normocellular to mildly hypercellular spicules present. The myeloid to erythroid ratio is 1.5:1. Full myeloid maturation is identified and is without significant dyspoiesis. There is a mild left shift in maturation. Erythroid maturation is mildly dyserythropoietic with irregular nuclear contours and left shifted maturation. In a 500 cell differential, there are 2% blasts (no Keiko rods are seen), 51% more differentiated myeloids, 34% erythroid precursors, 12% lymphocytes and 1% plasma cells. Megakaryocytes are proportional in number and both normal and abnormal in morphology with variable sizes and nuclear abnormalities including small and/or hypolobated forms present. No lymphoid aggregates or markedly atypical lymphoid cells are seen. Plasma cells are without atypia. Iron stain of the aspirate smear shows 0/4+ iron positivity with spicules present. No ringed sideroblasts are identified. . Core Biopsy and Cell Clot: The decalcified bone marrow core biopsy is adequate. The bone marrow is normocellular to mildly hypercellular for the patient's age with an overall cellularity of approximately 50-60%. The myeloid to erythroid ratio is 1-2:1. Myeloid maturation is without significant dyspoiesis. Erythroid maturation is mildly dyserythropoietic. Megakaryocytes are normal in number and both normal and abnormal in morphology. There is a focal suggestion of megakaryocyte clustering. No lymphoid aggregates or markedly atypical lymphoid cells are seen. Bony trabeculae and blood vessels are unremarkable. The cell clot has spicules present that are similar in cellularity and differential morphology as previously described. . Properly controlled special stains are performed. [address] [address] PATHOLOGY RPT PROCEDURE Name: OMAR UNDERWOOD Room #: 219-P DIS IN M.R.#: [id number] Admission: 08/01/20 Date of : 53 Discharge: 08/07/20 Report #: [id number] Path Case #: [id number] . Block A1: Iron - 0/4+ iron positivity; Reticulin - no significant reticulin fibrosis. . Block B1: Iron - 0/4+ iron positivity with spicules present. . To confirm the flow cytometry findings and to identify cells in a tissue architectural context, properly controlled immunohistochemical stains are performed. . Block A1: CD34 - no increased or abnormally localized blasts; CD117 - no increased or abnormally localized blasts; MPO - confirms the ME ratio; Glycophorin A - confirms the ME ratio; CD68 - stains the myelomonocytic cells. . Block B1: CD34 - no increased blasts; CD117 - no increased blasts; MPO - confirms the ME ratio; Glycophorin A - confirms the ME ratio; CD68 - stains the myelomonocytic cells. . Flow Cytometry: Flow cytometric immunophenotypic analysis was performed at [facility]. The diagnosis is "no significant immunophenotypic abnormalities detected." There are 0.3% myeloid blasts. There are 4% lymphocytes. Of the lymphocytes, there are 0.4% polyclonal B-cells (kappa lambda ratio of 2.3:1). T-cells have a CD4/CD8 ratio of 1.1 and no aberrant T-cell antigen expression. Please see separate flow cytometry report from [facility] ([id number]). . Cytogenetics: Cytogenetic chromosomal analysis is pending at [facility] ([id number]). (CLW:imelda; 08/12/2020) . . 02 Pathologist provided ICD-10: D69.6 . 02 CPT . 569062, 745655, 026505, 648622, 027516, 292076, 984678, 581431, 828738, I84391, N30006 Performed at: [address] [address] PATHOLOGY RPT PROCEDURE Name: CHARLESOMAR Room #: 219-P DIS IN M.R.#: [id number] Admission: 08/01/20 Date of : 53 Discharge: 08/07/20 Report #: [id number] Path Case #: [id number] [facility] [address], [place], [place] [id number] MD Cody Bustos MD Phone: [phone] Performed at: [address] [id number] MD Pietro Rodgers MD Phone: [phone]
== END 2020-08-07 19:00 | disposition home or self-care (01) | DRG 853 ==
LOC: ER 17:15 → 2N 20:06 → EROBS 20:06 → 2N 20:07
PROVIDERS: Emergency Medicine; Hospitalist; Internal Medicine Hematology & Oncology; Nurse Practitioner; Nurse Practitioner Family; ADMIT Hospitalist; ATTEND Hospitalist
DX: A41.01 Sepsis due to Methicillin susceptible Staphylococcus aureus (principal); I21.4 Non-ST elevation (NSTEMI) myocardial infarction; J96.01 Acute respiratory failure with hypoxia; I42.9 Cardiomyopathy, unspecified; I24.9 Acute ischemic heart disease, unspecified; Z20.828 Contact with and (suspected) exposure to other viral communicable diseases; D69.6 Thrombocytopenia, unspecified; E03.9 Hypothyroidism, unspecified; I25.10 Atherosclerotic heart disease of native coronary artery without angina pectoris; K21.9 Gastro-esophageal reflux disease without esophagitis; Z60.2 Problems related to living alone; R16.1 Splenomegaly, not elsewhere classified; E78.5 Hyperlipidemia, unspecified; I10 Essential (primary) hypertension; R31.0 Gross hematuria; E87.6 Hypokalemia; Z23 Encounter for immunization; Z80.6 Family history of leukemia; Z82.49 Family history of ischemic heart disease and other diseases of the circulatory system; Z95.5 Presence of coronary angioplasty implant and graft; Z79.82 Long term (current) use of aspirin; Z79.899 Other long term (current) drug therapy
CPT/HCPCS: 10081; 27000

== ENCOUNTER → 2020-08-08 | Outpatient (CLI) | payer OTHER ==
[~2020-08-08] MED LIST: ASPIRIN325 PO; CLOPIDOGREL75 MG PO; COREG6.25 MG PO; IMDUR 30 MG TAB30 M1 PO; LIPITOR40 MG PO; LISINOPRIL2.5 MG PO
== END ==
LOC: OPONC 07:10
PROVIDERS: ATTEND Specialist
DX: R07.89 Other chest pain (principal); R16.1 Splenomegaly, not elsewhere classified
CPT/HCPCS: 95000

== ENCOUNTER → 2020-08-09 | Outpatient (CLI) | payer OTHER | LOC: OPONC 08:30 | PROVIDERS: ATTEND Specialist | DX: R07.89 Other chest pain (principal); R16.1 Splenomegaly, not elsewhere classified | CPT/HCPCS: 95000 ==

== ENCOUNTER → 2020-08-10 | Outpatient (CLI) | payer OTHER | LOC: OPONC 12:00 | PROVIDERS: ATTEND Specialist | DX: R07.89 Other chest pain (principal); R16.1 Splenomegaly, not elsewhere classified | CPT/HCPCS: 95000 ==

== ENCOUNTER → 2020-08-11 | Outpatient (CLI) | payer OTHER ==
[~2020-08-11] VITALS: Ht 182.9 cm; Wt 106.6 kg
[2020-08-11 09:45] VITALS: BP 119/60
--- NOTE | 2020-08-11 14:30 | NUR ---
IN FOR DAILY DAPTOMYCIN INFUSION FOR SEPSIS. STATED FEELING WELL. DENIED PAIN, NAUSEA, DIARRHEA, FEVER, CHILLS. TOLERATED INFUSION WITHOUT INCIDENT. ADMISSION HISTORY AND ASSESSMENT COMPLETED. MEDICATION RECONCILED. PLAN IS FOR DAPTOMYCIN DAILY X 3 WEEKS. DISMISSED IN GOOD CONDITION.
== END ==
LOC: OPONC 09:33
PROVIDERS: ATTEND Specialist
DX: R07.89 Other chest pain (principal); R16.1 Splenomegaly, not elsewhere classified
CPT/HCPCS: 95000

== ENCOUNTER → 2020-08-12 | Outpatient (CLI) | payer OTHER ==
[~2020-08-12] MED LIST changes: +NITROSTAT0.4 M1 SUBLING
[2020-08-12 09:17] VITALS: BP 124/65
--- NOTE | 2020-08-12 13:12 | NUR ---
ARRIVED FOR DAILY INFUSION OF DAPTOMYCIN. VOICES NO COMPLAINTS. DENIES PAIN DIARRHEA OR NAUSEA. TOLERATED INFUSION WITHOUT ADVERSE REACTION. DISMISSED IN STABLE CONDITION.
== END ==
LOC: OPONC 08:48
PROVIDERS: ATTEND Specialist
DX: A41.9 Sepsis, unspecified organism (principal)
CPT/HCPCS: 95000

== ENCOUNTER → 2020-08-13 | Outpatient (CLI) | payer OTHER ==
[2020-08-13 10:28] LABS: HEMATOCRIT 37.6 % (42.0-52.0); HEMOGLOBIN 12.4 gm/dL (14.0-18.0); MCH 26.6 pg (26.0-34.0); MCHC 32.9 g/dL (28.0-37.0); RBC 4.64 mil/uL (4.50-6.00); RDW 16.4 % (10.5-14.5); WBC 4.9 thou/uL (4.0-11.0)
[2020-08-13 10:44] LABS: ALBUMIN 3.2 g/dL (3.4-5.0); CALCIUM 8.9 mg/dL (8.5-10.1); CREATININE 0.8 mg/dL (0.7-1.3); POTASSIUM 4.2 mmol/L (3.5-5.1); TOTAL BILIRUBIN 1.2 mg/dL (0.2-1.0); TOTAL PROTEIN 6.7 g/dL (6.4-8.2)
[2020-08-13 11:44] VITALS: BP 110/64
--- NOTE | 2020-08-13 12:07 | NUR ---
IN FOR DAILY DAPTOMYCIN INFUSION FOR SEPSIS. STATED FEELING WELL. DENIED PAIN, NAUSEA, DIARRHEA, FEVER, CHILLS, MUSCLE WEAKNESS. LABS DRAWN FROM PICC LINE WITHOUT DIFFICULTY. TOLERATED INFUSION WITHOUT INCIDENT. PICC DRESSING CHANGED. SITE WNL. TO GO TO ED FOR WEEKEND INFUSIONS. DISMISSED IN GOOD CONDITION.
== END ==
LOC: OPONC 08:36
PROVIDERS: ATTEND Specialist
DX: A41.9 Sepsis, unspecified organism (principal)
CPT/HCPCS: 95000

== ENCOUNTER → 2020-08-14 | Outpatient (CLI) | payer OTHER | LOC: OPONC 08:40 | PROVIDERS: ATTEND Specialist | DX: A41.9 Sepsis, unspecified organism (principal) | CPT/HCPCS: 95000 ==

== ENCOUNTER → 2020-08-15 | Outpatient (CLI) | payer OTHER | LOC: OPONC 08-14 08:42 | PROVIDERS: ATTEND Specialist | DX: A41.9 Sepsis, unspecified organism (principal) | CPT/HCPCS: 95000 ==

== ENCOUNTER → 2020-08-16 | Outpatient (CLI) | payer OTHER | LOC: OPONC 08-15 08:43 | PROVIDERS: ATTEND Specialist | DX: A41.9 Sepsis, unspecified organism (principal) | CPT/HCPCS: 95000 ==

== ENCOUNTER → 2020-08-17 | Outpatient (CLI) | payer OTHER ==
[~2020-08-17] MED LIST changes: +MUPIROCIN1 GM; +ROSUVASTATIN CA20 MG
== END ==
LOC: SJCVC 14:55
PROVIDERS: ATTEND Internal Medicine
DX: I25.10 Atherosclerotic heart disease of native coronary artery without angina pectoris (principal); E78.5 Hyperlipidemia, unspecified; R78.81 Bacteremia; D69.6 Thrombocytopenia, unspecified; Z79.82 Long term (current) use of aspirin; Z79.899 Other long term (current) drug therapy

== ENCOUNTER → 2020-08-17 | Outpatient (CLI) | payer OTHER | LOC: OPONC 08:47 | PROVIDERS: ATTEND Specialist | DX: A41.9 Sepsis, unspecified organism (principal) | CPT/HCPCS: 95000 ==

== ENCOUNTER → 2020-08-18 | Outpatient (CLI) | payer OTHER ==
[2020-08-18 10:11] VITALS: BP 110/57
--- NOTE | 2020-08-18 11:38 | NUR ---
IN FOR DAILY DAPTOMYCIN INFUSION. STATED FEELING WELL. DENIED NAUSEA, DIARRHEA, FEVER/CHILLS, MUSCLE WEAKNESS. TOLERATED INFUSION WITHOUT INCIDENT. TO RETURN TOMORROW FOR THE SAME. DISMISSED IN GOOD CONDITION.
== END ==
LOC: OPONC 08:50
PROVIDERS: ATTEND Specialist
DX: A41.9 Sepsis, unspecified organism (principal)
CPT/HCPCS: 95000

== ENCOUNTER → 2020-08-19 | Outpatient (CLI) | payer OTHER ==
[2020-08-19 09:55] VITALS: BP 122/70
--- NOTE | 2020-08-19 10:30 | NUR ---
HERE FOR DAILY IV DAPTOMYCIN. REPORTS DOING WELL, FEELING WELL. DENIES N/V, FEVER/CHILLS OR ANY CONCERNS. SPOKE ABOUT TREATMENT PLAN, TENTATIVE HEART SURGERY SCHEDULED FOR 09/08/20. CALLED DR. YA TO CONFIRM PLAN FOR WHEN TO HAVE PT F/U WITH HIM. PT IS TO SEE HIM IN HIS OFFICE NEXT WEEK ON MON/. PT GIVEN THE OFFICE NUMBER AND INSTRUCTIONS TO CALL TODAY TO GET THAT APPT SET UP. PT VERBALIZES UNDERSTANDING. PT DISMISSED IN STABLE CONDITION. SCHEDULED TO RETURN AGAIN TOMORROW.
== END ==
LOC: OPONC 08:36
PROVIDERS: ATTEND Specialist
DX: A41.9 Sepsis, unspecified organism (principal)
CPT/HCPCS: 95000

== ENCOUNTER → 2020-08-20 | Outpatient (CLI) | payer OTHER ==
[2020-08-20 10:26] VITALS: BP 117/59
[2020-08-20 10:47] LABS: HEMATOCRIT 40.5 % (42.0-52.0)
[2020-08-20 10:48] LABS: HEMOGLOBIN 13.3 gm/dL (14.0-18.0); MCH 26.9 pg (26.0-34.0); MCHC 32.9 g/dL (28.0-37.0); MCV 81.8 fL (80.0-100.0); RBC 4.95 mil/uL (4.50-6.00); RDW 18.1 % (10.5-14.5); WBC 4.9 thou/uL (4.0-11.0)
[2020-08-20 11:00] LABS: ALBUMIN 3.6 g/dL (3.4-5.0); CALCIUM 9.1 mg/dL (8.5-10.1); CREATININE 0.8 mg/dL (0.7-1.3); TOTAL BILIRUBIN 1.4 mg/dL (0.2-1.0); TOTAL PROTEIN 7.2 g/dL (6.4-8.2)
--- NOTE | 2020-08-20 11:54 | NUR ---
ARRIVED AMBULATORY FOR DAPTOMYCIN. PICC LINE INTACT WITH BRISK BLOOD RETURN. LABS DRAWN. MEDICATION INFUSED WITHOUT ADVERSE REACTION. PICC LINE DRESSING CHANGED PER PROTOCOL. CALLED DR. YA'S OFFICE AND SPOKE WITH LYDIA. APPOINTMENT SCHEDULED ON August WITH DR. YA AT 9 AM. DC AMBULATORY IN STABLE CONDITION.
== END ==
LOC: OPONC 09:00
PROVIDERS: ATTEND Specialist
DX: A41.9 Sepsis, unspecified organism (principal)
CPT/HCPCS: 95000

== ENCOUNTER → 2020-08-21 | Outpatient (CLI) | payer OTHER | LOC: OPONC 09:00 | PROVIDERS: ATTEND Specialist | DX: A41.9 Sepsis, unspecified organism (principal) | CPT/HCPCS: 95000 ==

== ENCOUNTER → 2020-08-22 | Outpatient (CLI) | payer OTHER ==
[2020-08-22 12:05] VITALS: BP 131/59
--- NOTE | 2020-08-22 12:39 | NUR ---
HERE FOR DAPTOMYCIN INFUSION. STATES HE IS FEELING WELL. MEDICATION INFUSED WITHOUT ADVERSE REACTION. PICC INTACT WITH BRISK BLOOD RETURN. PICC FLUSHED AFTER INFUSION AND PATIENT DC AMBULATORY IN STABLE CONDITION.
== END ==
LOC: OPONC 09:56
PROVIDERS: ATTEND Specialist
DX: A41.9 Sepsis, unspecified organism (principal)
CPT/HCPCS: 95000

== ENCOUNTER → 2020-08-23 | Outpatient (CLI) | payer OTHER ==
[2020-08-23 10:55] VITALS: BP 125/59
--- NOTE | 2020-08-23 11:46 | NUR ---
HERE FOR DAILY IV DAPTOMYCIN INFUSION. REPORTS DOING WELL, FEELING WELL. NO CONCERNS NOTED. TOLERATED INFUSION WITHOUT INCIDENT. DENIES N/V/DIARRHEA, FEVER/CHILLS, MUSCLE ACHES/PAINS. DISMISSED IN STABLE CODNTION.
== END ==
LOC: OPONC 10:00
PROVIDERS: ATTEND Specialist
DX: A41.9 Sepsis, unspecified organism (principal)
CPT/HCPCS: 95000

== ENCOUNTER → 2020-08-24 | Outpatient (CLI) | payer OTHER ==
[2020-08-24 10:00] VITALS: BP 121/66
--- NOTE | 2020-08-24 10:40 | NUR ---
HERE FOR DAILY IV DAPTOMYCIN INFUSION. REPORTS DOING WELL EXCEPT NOTICED A LITTLE MORE DYSPNEA WITH HIS WALK TODAY FROM THE FRONT OF THE HOSPITAL TO HERE. NO CHEST PAIN OR OTHER DISCOMFORTS AND RECOVERED QUICKLY. DID NOT APPEAR TO BE DYSPNEIC ONCE RESTED IN CHAIR, O2 SAT 97%. DID ENCOURAGE PT TO TOUCH BASE WITH HIS SHELTER MONITOR IF THIS PERSISTS OR CAUSES CONCERN. REVIEWED PLAN WITH PT AND CALLED DR. YA'S OFFICE TO MOVE HIS APPT TO THIS WEEK ON MONDAY SO WE CAN FUTURE PLAN. PT AGREEABLE WITH THIS. PT CONTINUES TO DENY ANY N/V/DIARRHEA, FEVER/CHILLS, MUSCLE WEAKNESS. TOLERATED TODAY'S INFUSION WITHOUT INCIDENT. DISMISSED IN STABLE CONDITION. SCHEDULED TO RETURN AGAIN TOMORROW.
== END ==
LOC: OPONC 09:02
PROVIDERS: ATTEND Specialist
DX: A41.9 Sepsis, unspecified organism (principal)
CPT/HCPCS: 95000

== ENCOUNTER → 2020-08-25 | Outpatient (CLI) | payer OTHER ==
[2020-08-25 11:33] VITALS: BP 112/60
--- NOTE | 2020-08-25 11:37 | NUR ---
IN FOR DAILY DAPTOMYCIN INFUSION. STATED FEELING WELL. DENIED PAIN, NAUSEA, DIARRHEA, FEVER/CHILLS. TOLERATED INFUSION WITHOUT INCIDENT. TO RETURN TOMORROW FOR THE SAME. DISMISSED IN GOOD CONDITION.
== END ==
LOC: OPONC 09:16
PROVIDERS: ATTEND Specialist
DX: A41.9 Sepsis, unspecified organism (principal)
CPT/HCPCS: 95000

== ENCOUNTER → 2020-08-26 | Outpatient (CLI) | payer OTHER ==
[2020-08-26 10:13] VITALS: BP 118/90
[2020-08-26 10:36] LABS: HEMOGLOBIN 13.3 gm/dL (14.0-18.0); WBC 4.3 thou/uL (4.0-11.0)
[2020-08-26 10:38] LABS: HEMATOCRIT 40.1 % (42.0-52.0); MCH 27.1 pg (26.0-34.0); MCHC 33.1 g/dL (28.0-37.0); RBC 4.89 mil/uL (4.50-6.00)
[2020-08-26 10:59] LABS: ALBUMIN 3.5 g/dL (3.4-5.0); CALCIUM 8.7 mg/dL (8.5-10.1); CREATININE 0.9 mg/dL (0.7-1.3); POTASSIUM 3.9 mmol/L (3.5-5.1)
--- NOTE | 2020-08-26 11:49 | NUR ---
ARRIVED AMBULATORY FOR DAPTOMYCIN INFUSION. DENIES PAIN FEVER OR CHILLS. NO DIAHRRHEA. TOLERATED INFUSION WITHOUT ADVERSE REACTION. LABS DRAWN TODAY PATIENT TO SEE DR. YA IN HIS OFFICE IN AM. PATIENT TO RETURN TOMORROW AFTER DOCTOR APPOINTMENT FOR NEXT INFUSION. DC AMBULATORY IN STABLE CONDITION.
== END ==
LOC: OPONC 08:54
PROVIDERS: ATTEND Specialist
DX: A41.9 Sepsis, unspecified organism (principal)
CPT/HCPCS: 95000

== ENCOUNTER → 2020-08-27 | Outpatient (CLI) | payer OTHER ==
[2020-08-27 10:40] VITALS: BP 121/64
--- NOTE | 2020-08-27 11:15 | NUR ---
PT CAME FROM DR. YA'S OFFICE WITH ORDER TO HAVE TOMORROW BY HIS LAST DAPTOMYCIN INFUSION AND TO PULL THE PICC LINE. PT UNCLEAR ON PLAN MOVING FORWARD. CALLED GWEN RN WITH DR. MALHOTRA, WHO CAME BY TO SEE THE PATIENT, LET HIM KNOW THAT HIS HEART SURGERY IS ON HOLD PENDING CLEARING OF THE INFECTION, EVALUATION OF HIS LOW PLT CT BY THE SALICYLIC ACID BLENDER, ETC. PT AGREEBLE. GWEN WAS ABLE TO VERIFY THAT PT HAS AN APPT ALREADY SCHEDULED WITH DR. SILVA FOR 09/02 AT 0945. I GAVE PT AN INFO SHEET WITH OUR PCP OFFICE LOCATION AND PROVIDER NAMES SO HE COULD GET SET UP WITH A PCP AND ENCOURAGED HIM TO MAKE THAT APPT THIS WEEK. GWEN PLANS TO F/U WITH PT AFTER HIS VISIT WITH DR. SILVA. PT VERBALIZED UNDERSTANDING OF PLAN. TOLERATED INFUSION TODAY WITHOUT INCIDENT. WILL RETURN TOMORROW FOR HIS LAST DOSE AND TO HAVE LINE REMOVED. DISMISSED IN STABLE CONDITION.
== END ==
LOC: OPONC 09:46
PROVIDERS: ATTEND Specialist
DX: A41.9 Sepsis, unspecified organism (principal)
CPT/HCPCS: 95000

== ENCOUNTER → 2020-08-28 | Outpatient (CLI) | payer OTHER ==
[2020-08-28 10:09] VITALS: BP 123/64
--- NOTE | 2020-08-28 10:52 | NUR ---
IN FOR DAILY DAPTOMYCIN INFUSION. STATED FEELING WELL. DENIED FEVER/CHILLS, DIARRHEA, NAUSEA, SOB, COUGH, PAIN. TOLERATED INFUSION WITHOUT INCIDENT. REMOVED PICC LINE WITH TIP INTACT. DISCUSSED BLEEDING PRECAUTIONS. PATIENT TO SEE DR. SILVA NEXT WEEK FOR LOW PLATELET COUNT OF 41. PATIENT DENIES ANY BLEEDING AT THIS TIME. DISMISSED IN GOOD CONDITION. THANK YOU CARD AND SURVEY GIVEN TO PATIENT.
== END ==
LOC: OPONC 09:35
PROVIDERS: ATTEND Specialist
DX: A41.9 Sepsis, unspecified organism (principal)
CPT/HCPCS: 95000

== ENCOUNTER 2021-01-08 17:11 | Emergency (ER) | payer OTHER ==
[~2021-01-08] VITALS: Ht 182.9 cm; Wt 111.1 kg
[2021-01-08 18:20] LABS: BASOPHILS 0.2 % (0.0-2.0); EOSINOPHILS 0.8 % (0.0-3.0); HEMATOCRIT 37.7 % (42.0-52.0); HEMOGLOBIN 12.9 gm/dL (14.0-18.0); LYMPHOCYTES 6.5 % (24.0-44.0); MCH 27.1 pg (26.0-34.0); MCHC 34.2 g/dL (28.0-37.0); MCV 79.4 fL (80.0-100.0); MONOCYTES 12.5 % (1.0-8.0); PLATELET COUNT 102 thou/uL (150-400); RBC 4.74 mil/uL (4.50-6.00); RDW 15.4 % (10.5-14.5); WBC 6.2 thou/uL (4.0-11.0)
[2021-01-08 18:23] LABS: CREATININE 1.1 mg/dL (0.7-1.3); POTASSIUM 3.7 mmol/L (3.5-5.1)
[2021-01-08 18:28] LABS: APTT 25.4 Seconds (24.5-32.8); INR 1.02; PROTIME 11.1 Seconds (10.5-12.1)
[2021-01-08 18:29] LABS: ALBUMIN 3.1 g/dL (3.4-5.0); TOTAL BILIRUBIN 3.7 mg/dL (0.2-1.0); TOTAL PROTEIN 6.9 g/dL (6.4-8.2)
[2021-01-08 19:59] LABS: URINE BILIRUBIN 3+ (Negative); URINE BLOOD NEGATIVE (Negative); URINE CLARITY CLEAR; URINE GLUCOSE-RANDOM* TRACE (Negative); URINE KETONES TRACE (Negative); URINE PROTEIN (DIPSTICK) 2+ (Negative); URINE SPECIFIC GRAVITY 1.025 (1.005-1.035); URINE UROBILINOGEN >= 8.0 E.U./dl (0.2-1.0)
[2021-01-08 20:01] LABS: URINE LEUKOCYTES-REFLEX 1+ (Negative); URINE NITRITE-REFLEX POSITIVE (Negative)
[2021-01-08 20:02] LABS: ICTOTEST (BILI CONFIRMATORY) Positive (Negative); URINE COLOR AMBER
[2021-01-08 20:09] LABS: SQUAMOUS 0-3 Few /LPF (0-3)
[2021-01-08 20:10] LABS: CRYSTALS None Seen /LPF (None Seen); FINE GRANULAR CASTS 0-3 Few /LPF (None Seen); URINE RBC None Seen /HPF (NONE SEEN); URINE WBC-REFLEX 6-15 Few /HPF (0-5)
[2021-01-08 21:00] VITALS: BP 98/53
[2021-01-08] MEDS ORDERED: ZOFRAN ODT4 MG PO (21:16)
[2021-01-08] MEDS ORDERED: CEPHALEXIN500 MG PO (21:16)
== END 2021-01-08 21:45 | disposition home or self-care (01) ==
LOC: ER 17:11
PROVIDERS: Nurse Practitioner Family
DX: N39.0 Urinary tract infection, site not specified (principal); Z20.822 Contact with and (suspected) exposure to COVID-19; E80.6 Other disorders of bilirubin metabolism; Z98.890 Other specified postprocedural states

== ENCOUNTER → 2021-09-20 | Outpatient (CLI) | payer OTHER ==
[~2021-09-20] MED LIST changes: +CEPHALEXIN500 MG PO; +ZOFRAN ODT4 MG PO
== END ==
LOC: SJCVC 09:40
PROVIDERS: ATTEND Internal Medicine
DX: I25.10 Atherosclerotic heart disease of native coronary artery without angina pectoris (principal); R94.31 Abnormal electrocardiogram [ECG] [EKG]; E78.5 Hyperlipidemia, unspecified; D69.6 Thrombocytopenia, unspecified; I10 Essential (primary) hypertension; Z79.82 Long term (current) use of aspirin; Z79.899 Other long term (current) drug therapy